=== PATIENT | male | born 1975 | race Caucasian/White ===

== ENCOUNTER 2021-05-01 21:19 | Emergency (ER) | payer OTHER ==
[~2021-05-01] VITALS: Ht 182.9 cm; Wt 125.0 kg
[2021-05-01] MEDS ORDERED: MORPHINE SULFATE 10 MG/ML CPJ IM ONE (22:15)
[2021-05-01] MEDS ORDERED: IBUP-2029 MT (22:30)
[2021-05-01] MEDS ORDERED: KETOROLAC 60MG/2ML VIAL IM ONE (22:30)
[2021-05-01] MEDS ORDERED: T3 PO (22:32)
[2021-05-01 22:53] VITALS: BP 165/83
== END 2021-05-01 22:54 | disposition home or self-care (01) ==
LOC: ER 21:19
DX: S89.81XA Other specified injuries of right lower leg, initial encounter (principal); W18.39XA Other fall on same level, initial encounter; Y93.01 Activity, walking, marching and hiking; Y92.89 Other specified places as the place of occurrence of the external cause; I10 Essential (primary) hypertension
CPT/HCPCS: 96372; 99283; J1885; L1830; Z7610